=== PATIENT | male | born 1995 | race Caucasian/White ===

== ENCOUNTER 2025-03-05 14:08 | Emergency (ER) | payer OTHER, SELFPAY ==
[2025-03-05 14:25] VITALS: BP 149/79
[2025-03-05 14:50] LABS: % Basophils 0.5 % (0-2); % Eosinophils 3.2 % (0-6); % Immature Granulocytes 0.2 % (0-0.5); % Lymphocytes 30.9 % (20.5-51.1); % Monocytes 18.5 % (1.7-9.3); % Neutrophils 46.7 % (42.2-75.2); Absolute Eosinophils 0.2 10^3/uL (0-0.7); Absolute Lymphocytes 1.8 10^3/uL (1.2-3.4); Absolute Monocytes 1.1 10^3/uL (0.1-0.6); Absolute Neutrophils 2.7 10^3/uL (1.4-6.5); Hematocrit 41.3 % (39.0-52.0); Mean Corp Hgb Conc. 31.5 g/dL (33.0-37.0); Mean Corpuscular Hgb 21.6 pg (27.0-31.0); Mean Corpuscular Volume 68.6 fL (80.0-94.0); Mean Platelet Volume 9.2 fL (7.4-10.4); Nucleated Red Blood Cells % 0 % (-); Platelet Count 272 10^3/uL (130-400); Red Blood Cell Count 6.02 10^6/uL (4.70-6.10); Red Cell Dist. Width 15.5 % (11.5-14.5); White Blood Cell Count 5.9 10^3/uL (4.8-10.8)
[2025-03-05 15:13] LABS: Troponin I < 0.012 ng/ml
[2025-03-05 15:39] LABS: ALT (SGPT) 25 U/L (0-50); AST (SGOT) 28 U/L (17-59); Alkaline Phosphatase 86 U/L (38-126); Blood Urea Nitrogen 13 mg/dl (9-20); Calcium 9.8 mg/dl (8.4-10.2); Carbon Dioxide 25 mmol/L (22-30); Chloride 107 mmol/L (98-107); Glucose 86 mg/dl (70-99); Potassium 4.4 mmol/L (3.5-5.1); Sodium 143 mmol/L (135-145); Total Bilirubin 0.8 mg/dl (0.2-1.3); Total Protein 7.6 g/dl (6.3-8.2); eGFR > 60.00
--- NOTE | 2025-03-05 17:04 | ED.GENMED ---
History of Present Illness
General
Chief Complaint: Chest Pain
Source: patient
Exam Limitations: none
Time Seen by Provider: 03/05/25 17:04
History of Present Illness
History of Present Illness:
29yoM with a history of depression presenting for evaluation of chest pain. He reports left anterior chest pain for the past week and a half. He describes the pain as sharp and non-radiating. Pain is worse with palpation, laughing, cough,
movement, and breathing. He has not taken anything OTC for his symptoms. He denies any trauma to the area. He also is having some dyspnea with activity. He denies any fevers, leg swelling, calf pain, recent travel. No tobacco use.
Phy Exam
General Physical Exam
General Presentation: well appearing and no apparent distress
General age: appears stated age
General Skin: warm and dry
General Habitus: normal
General Mental: alert
ENT Exam
ENT Exam: normocephalic
Cardiovascular Exam
Cardiovascular Exam: regular rate/rhythm and no murmur
Pulmonary Exam
Pulmonary Exam: lungs clear, no respiratory distress, no rales, no crackles, no rhonchi, no wheezing and other (+Reproducible tenderness to the L anterior chest wall. No skin changes.)
Gastrointestinal Exam
Gastrointestinal Exam: non tender, soft and non distended
Neurological Exam
Neurological Exam: alert
[place] Coma Scale
Eye Opening: Spontaneous
Verbal Response: Oriented
Motor Response: Obeys Commands
GCS Total Score: 15
Skin Exam
Skin Exam: normal color and warm/dry
Psychiatric Exam
Psychiatric Exam: normal mood/affect
Scores
Heart Score for Chest Pain Patients
STEMI patient?: No
History: Slightly or Non-Suspicious
ECG: Normal
Age: </= 45 years
Risk Factors: No Risk Factors
Troponin: </= Normal Limit
Heart Score for Chest Pain Patients: 0
Heart Score Risk: 2.5% MACE over next 6 weeks
PE Wells Score
Symptoms of DVT: No
No alternative diagnosis better explains the illness: No
Tachycardia with pulse > 100: No
Immobilization (>=3 days) or surgery within previous 4 weeks: No
Prior history of DVT or pulmonary embolism: No
Presence of hemoptysis: No
Presence of malignancy: No
Pulmonary Embolism Risk Score: 0
Probability of PE: Pt is low risk
PERC Rule Criteria
Age <50 years: Yes
HR <100 bpm: Yes
Room air oxygen sat >94%: Yes
History of DVT or PE: No
Recent trauma or surgery: No
Hemoptysis: No
Exogenous estrogen: No
Clinical signs suggestive of DVT: No
: No
Considered low risk for PE: Yes
PERC Score: 0
PE can be excluded by PERC: Yes
Course
Orders/Labs/Results
Orders:
Orders
03/05/25 14:09
Electrocardiogram (*1) Urgent
Reason for Study: Chest Pain
EKG- Treatment ONCE
03/05/25 14:27
Electrocardiogram (*1) Urgent
Reason for Study: Chest Pain
03/05/25 14:28
EKG- Treatment ONCE
03/05/25 14:37
Complete Blood Count/With Diff Urgent
Comprehensive Metabolic Panel Urgent
Troponin I Urgent
03/05/25 17:12
CR Ribs-left 3 Vw W/pa Chest Urgent
Comment:
Reason For Exam: L anterior rib pain, SOB
Abnormal Lab Results
03/05/25
14:37
MCV 68.6 L fL
(80.0-94.0)
MCH 21.6 L pg
(27.0-31.0)
MCHC 31.5 L g/dL
(33.0-37.0)
RDW 15.5 H %
(11.5-14.5)
Absolute Monos (auto) 1.1 H 10^3/uL
(0.1-0.6)
Monocytes % 18.5 H %
(1.7-9.3)
03/05/25 14:37
03/05/25 14:37
Vital Signs
Initial and Last Documented VS:
Initial Vital Signs
Temp Pulse Resp BP Pulse Ox
98.2 F 68 18 149/79 98
03/05/25 14:25 03/05/25 14:25 03/05/25 14:25 03/05/25 14:25 03/05/25 14:25
Last Documented Vital Signs
Temp Pulse Resp BP Pulse Ox
98.2 F 75 16 127/58 98
03/05/25 14:25 03/05/25 19:47 03/05/25 19:47 03/05/25 17:12 03/05/25 19:47
MDM/Problems Addressed
Differential Diagnosis Includes:
29yoM here with chest pain x 1.5 weeks. Sharp L sided pain. Worse with movement, laughing, breathing. VSS. There is reproducible chest wall tenderness on exam. Differential diagnosis includes but is not limited to: costochondritis, rib fracture,
pleurisy, pneumonia, pneumothorax
Initial ED plan: Workup initiated in triage. EKG shows NSR without ischemic changes and troponin WNL. PERC criteria negative and PE is clinically ruled out. Will check CXR.
*Pulse Oximetry
SaO2: 98
Oxygen Mode of Delivery: Room air
Patient hypoxic: no (98%)
*EKG
Interpreted by ED Provider?: Yes
EKG Intrepretation Date: 03/05/25
Heart Rate: 61
Rate: normal
Rhythm: sinus
[place]: normal axis
Interval: normal interval
QRS Pattern: normal QRS
Ischemia: no ischemia
*Critical Care Note
Total Time (30-74mins, 75-104mins- exclusive of procedures): Not Applicable
Update Note
Update Note:
CXR is negative for acute findings per my interpretation. No indication for hospitalization. Suspect musculoskeletal chest pain. Supportive care discussed including heat and NSAIDs. Advised f/u with PCP. Patient discharged in stable condition.
ED Attending Note
-
Portions of this chart may have been created with voice recognition software.� Occasional wrong word or��sound alike� substitutions may have occurred due to the inherent limitations of voice recognition software.
Discharge Plan
Departure
Patient Disposition: Home (Routine Discharge)
Date of Disposition: 03/05/25
Time of Disposition: 19:08
Patient with high blood pressure during this ER visit?: No
Discharge Problem:
Acute chest wall pain
Instructions: Costochondritis
Referrals:
PRIVATE,PHYSICIAN [Family Provider, Internal Medicine]
Activity Restrictions/Additional Instructions:
Apply heat to affected area. Take ibuprofen as needed for pain.
Please follow-up with your family doctor. Return to the ER with any new or worsening symptoms.
Interventions
Interventions:
*Risk Screen - Suicide Last Done: 03/05/25 17:13
*Neglect/Abuse Screening Last Done: 03/05/25 17:12
*Nursing Disposition Last Done: 03/05/25 19:47
ED- Cardiac Assessment Last Done: 03/05/25 17:13
Discharge Date and Time
Discharge Date/Time: 03/05/25 19:48
Print Language: ESTONIAN
[2025-03-05 17:12] VITALS: BP 127/58
== END 2025-03-05 19:48 | disposition home or self-care (01) ==
LOC: EMR 14:08
PROVIDERS: Emergency Medicine; EMERGENCY PHYSICIAN Emergency Medicine
DX: R07.89 Other chest pain (principal)
CPT/HCPCS: 99285; 71101; 80053; 84484; 85025; 93005